=== PATIENT | male | born 1985 | race Caucasian/White ===

== ENCOUNTER 2021-03-15 10:47 | Emergency (ER) | payer OTHER ==
[~2021-03-15] VITALS: Ht 167.6 cm; Wt 72.6 kg
[2021-03-15 10:49] VITALS: BP 148/90
[2021-03-15] MEDS ORDERED: KETOROLAC TROMETH 60MG/2ML VIAL IM ONE (11:45)
[2021-03-15] MEDS ORDERED: cefTRIAXone SOD 1,000 MG VL IM ONE (11:45)
== END 2021-03-15 12:02 | disposition home or self-care (01) ==
LOC: ER 10:47
DX: K04.7 Periapical abscess without sinus (principal); J03.90 Acute tonsillitis, unspecified
CPT/HCPCS: 96372; 99284; J0696; J1885